=== PATIENT | female | born 2000 | race Two or more races ===

== ENCOUNTER 2024-12-17 10:01 | Inpatient (IN) | payer MEDICAID, OTHER ==
[~2024-12-17] VITALS: Ht 160 cm; Wt 68.9 kg
[2024-12-17 10:40] LABS: COVID AG,FIA SOURCE NASAL SWAB
[2024-12-17 10:44] LABS: PH,URINE DRUG SCREEN 6.0 (5.0-8.0)
[2024-12-17 10:50] LABS: ALCOHOL, URINE DRUG SCREEN NEGATIVE (NEGATIVE); AMPHET/METH SCREEN,URINE NEGATIVE (NEGATIVE); BARBITURATE SCREEN, URINE NEGATIVE (NEGATIVE); CANNABINOID SCREEN,URINE POSITIVE (NEGATIVE); COCAINE SCREEN,URINE NEGATIVE (NEGATIVE); METHADONE SCREEN, URINE NEGATIVE (NEGATIVE)
[2024-12-17 10:53] LABS: PLATELET COUNT (AUTO) 210 K/uL (150-450); RED BLOOD CELL COUNT(AUTO) 4.85 MIL/uL (4.00-5.20); RED CELL DISTRIBUTION WIDTH 13.7 % (11.5-14.5); WHITE BLOOD COUNT (AUTO) 7.6 K/uL (4.5-11.0)
[2024-12-17 11:00] LABS: CALCIUM, TOTAL 8.9 mg/dL (8.8-10.5); CREATININE 0.82 mg/dL (0.60-1.30); GLOMERULAR FILTR. RATE CALC > 60 mL/min (>60); GLUCOSE,RANDOM 92 mg/dL (70-110); SODIUM SERUM 135 mmol/L (136-145); UREA NITROGEN, BLOOD 11 mg/dL (7-18)
[2024-12-17] MEDS ORDERED: GuaiFENesin/D-METHORPHAN [SUGAR-FREE] 200-20MG/10 ML SYRUP UDCUP PO PRN (11:45)
[2024-12-17] MEDS ORDERED: TUBERCULIN, PURIFIED PROTEIN DERIVATIVE 5 TU/0.1 ML SYRINGE ID ONE (11:45)
[2024-12-17] MEDS ORDERED: ZOLPIDEM TARTRATE 10 MG TABLET PO PRN (11:45)
[2024-12-17] MEDS ORDERED: PROMETHAZINE HCL 25 MG TABLET PO PRN (11:45)
[2024-12-17] MEDS ORDERED: ACETAMINOPHEN 325 MG TABLET PO PRN (11:45)
[2024-12-17] MEDS ORDERED: MAG HYDROX/ALUMINUM HYD/SIMETH ES 30 ML SUSPENSION UDCUP PO PRN (11:45)
[2024-12-17] MEDS ORDERED: LOPERAMIDE HCL 2 MG CAPSULE PO PRN (11:45)
[2024-12-17 13:12] LABS: SARS-COV2 (COVID) ANTIGEN,FIA Negative (Negative)
[2024-12-17] MEDS: OMEGA-3/DHA/EPA/FISH OIL 1,000 MG CAPSULE PO SCH (16:00)
[2024-12-17 18:32] VITALS: O2SAT 98
[2024-12-17] MEDS: THIAMINE 100 MG TABLET PO SCH (20:03)
[2024-12-17 22:13] VITALS: BP 118/77; PULSE 117; RESP 18; TEMP 98.2; O2SAT 98
[2024-12-17] MEDS: MELATONIN 5 MG TABLET PO SCH (22:19)
[2024-12-17] MEDS: MAGNESIUM HYDROXIDE SUSPENSION 30 ML UDCUP PO PRN (22:19)
[2024-12-18 08:08] VITALS: BP 116/82; PULSE 103; RESP 17; TEMP 98.4; O2SAT 98
[2024-12-18] MEDS: POTASSIUM CHLORIDE 20 MEQ ER TABLET PO ONE (08:16)
[2024-12-18] MEDS: NALTREXONE HCL 50 MG TABLET PO SCH (08:17)
[2024-12-18] MEDS: DEXTROMETHORPHAN HBR/QUINIDINE 20/10 MG CAPSULE PO SCH (08:17)
[2024-12-18] MEDS: MULTIVITAMINS WITH MINERALS, THERAPEUTIC TABLET PO SCH (08:17)
[2024-12-18] MEDS: FOLIC ACID 1 MG TABLET PO SCH (08:17)
[2024-12-18 09:18] LABS: CHOL/HDL RATIO 3.7 (3.9-5.7); LDL CHOL (CALC.) 101.0 mg/dL (0-130)
[2024-12-18] MEDS: ONDANSETRON HCL 4 MG/2 ML VIAL IM PRN (12:23)
[2024-12-18] MEDS ORDERED: FLUO-418 PO (17:09)
[2024-12-18] MEDS ORDERED: MELA5TAB40 PO (17:09)
[2024-12-18] MEDS ORDERED: OMEG100033 PO (17:09)
[2024-12-18] MEDS ORDERED: NALT50TA33 PO (17:09)
[2024-12-18 20:04] VITALS: BP 105/86; PULSE 117; RESP 17; TEMP 97.8; O2SAT 97
[2024-12-19 05:08] LABS: HEPATITIS C AB (EIA) Non Reactive (Non Reactive)
[2024-12-19 09:01] LABS: APPEARANCE,URINE CLEAR (CLEAR); GLUCOSE, URINE (UA) NEGATIVE (NEGATIVE); LEUKOCYTE ESTERASE ,URINE TRACE (NEGATIVE); NITRATE,URINE NEGATIVE (NEGATIVE); OCCULT BLOOD,URINE NEGATIVE (NEGATIVE); SPECIFIC GRAVITIY, URINE 1.010 (1.003-1.030)
[2024-12-19 09:06] LABS: AMPHET/METH SCREEN,URINE NEGATIVE (NEGATIVE); BARBITURATE SCREEN, URINE NEGATIVE (NEGATIVE); CANNABINOID SCREEN,URINE POSITIVE (NEGATIVE); COCAINE SCREEN,URINE NEGATIVE (NEGATIVE); METHADONE SCREEN, URINE NEGATIVE (NEGATIVE)
[2024-12-19 09:07] LABS: ALCOHOL, URINE DRUG SCREEN NEGATIVE (NEGATIVE)
[2024-12-19 09:19] LABS: PH,URINE DRUG SCREEN 6.0 (5.0-8.0)
[2024-12-19 09:24] LABS: SQUAMOUS EPITHELIAL CELL,UR Moderate /LPF (None Seen)
== END 2024-12-19 09:23 | disposition home or self-care (01) | DRG 751 ==
LOC: EMS 11:25 → B2S 18:50
PROVIDERS: ADMIT Psychiatry & Neurology Psychiatry; ATTEND Psychiatry & Neurology Psychiatry
PROC: GZHZZZZ Group Psychotherapy (ICD-10-PCS; principal; 2024-12-17)
PROC: GZ51ZZZ Individual Psychotherapy, Behavioral (ICD-10-PCS; 2024-12-17)
PROC: GZ58ZZZ Individual Psychotherapy, Cognitive-Behavioral (ICD-10-PCS; 2024-12-17)
PROC: GZ56ZZZ Individual Psychotherapy, Supportive (ICD-10-PCS; 2024-12-18)
DX: F32.2 Major depressive disorder, single episode, severe without psychotic features (principal); R45.851 Suicidal ideations; G45.9 Transient cerebral ischemic attack, unspecified; F12.90 Cannabis use, unspecified, uncomplicated; B36.8 Other specified superficial mycoses; J44.9 Chronic obstructive pulmonary disease, unspecified; K52.9 Noninfective gastroenteritis and colitis, unspecified; Z20.822 Contact with and (suspected) exposure to COVID-19; Z55.9 Problems related to education and literacy, unspecified; Z91.010 Allergy to peanuts; Z65.3 Problems related to other legal circumstances; Z63.9 Problem related to primary support group, unspecified; Z59.00 Homelessness unspecified
CPT/HCPCS: 80048; 80061; 80307; 81001; 83036; 84132; 84439; 84443; 84703; 85025; 86592; 86803; 87081; 87340; 99285; G0480; J2405